=== PATIENT | female | born 1995 | race African-American/Black ===

== ENCOUNTER 2018-10-13 09:11 | Inpatient (IN) ==
[2018-10-13] MEDS ORDERED: LIDOCAINE HCL 50 ML VIAL PERI PRN (09:13)
[2018-10-13] MEDS ORDERED: NALBUPHINE HCL 10 MG/ML AMPUL IV PRN ×2 (09:13)
[2018-10-13] MEDS ORDERED: ONDANSETRON HCL/PF 2 MG/ML VIAL IV PRN (09:13)
[2018-10-13] MEDS ORDERED: RINGER'S SOLUTION,LACTATED 1,000 ML IV ONE (09:13)
[2018-10-13] MEDS ORDERED: OXYTOCIN/DEXTROSE 5%-WATER 30 UNITS/500 ML BAG IV ONE ×2 (09:13→19:59)
[2018-10-13] MEDS: RINGER'S SOLUTION,LACTATED 1,000 ML IV PRN ×2 (10:01→18:10)
[2018-10-13 10:12] LABS: Cocaine Ur Negative (NEGATIVE); Urine Barbiturate Negative (NEGATIVE); Urine Benzodiazepines Negative (NEGATIVE); Urine Opiates Negative (NEGATIVE); Urine PCP Negative (NEGATIVE); Urine THC Negative (NEGATIVE)
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
[2018-10-13] MEDS ORDERED: BENZOCAINE/MENTHOL 81 SPRAY CAN TP PRN (19:59)
[2018-10-13] MEDS ORDERED: HYDROCORTISONE 30 APPL TUBE TP PRN (19:59)
[2018-10-13] MEDS ORDERED: oxyCODONE HCL/ACETAMINOPHEN 1 TAB TABLET PO PRN ×2 (19:59)
[2018-10-13] MEDS ORDERED: GLYCERIN/WITCH HAZEL LEAF 40 APPL BOX TP PRN (19:59)
[2018-10-13] MEDS ORDERED: SENNOSIDES 8.6 MG TABLET PO PRN (19:59)
[2018-10-13] MEDS ORDERED: BISACODYL 10 MG SUPP.RECT RC PRN (19:59)
--- NOTE | 2018-10-13 20:04 | OR ---
Operative Report - Dictated Report Narrative: Date of delivery: 10/13/2018 Time of delivery: 1949 Gender: female weight: 3922 grams APGARS: 9 Procedure: Description of the procedure: The patient is a 23 yo @ 40w 6d who presented to labor and delivery for a medical induction of labor. She received pitocin and labor was augmented with AROM. She progressed to complete dilation. She delivered a viable female in the direct OA position over an intact perineum. The head was delivered followed by the shoulders and body without any difficulty. Cord clamping was delayed for 60 seconds. The cord was clamped and cut and the infant was handed off to the hospital staff pharmacist. The placenta was delivered by expression and appeared intact. Complications: none EBL: 200 mL
[2018-10-13] MEDS: DOCUSATE SODIUM 100 MG CAPSULE PO SCH (23:02)
[2018-10-14] MEDS: IBUPROFEN 800 MG TABLET PO PRN (03:04)
--- NOTE | 2018-10-14 07:46 | PN ---
Subjective - Date and Time Seen Date: 10/14/18 Time: 07:45 Subjective Narrative: Pt without complaints Objective Objective Narrative: See vital signs - Review of Systems Generalized/Overall Review: Reports: No Symptoms Reported Misc: All systems neg except as marked - Vitals Vitals: Last Vital Signs Temp 36.7 C 10/14/18 06:50 Pulse 70 10/14/18 06:50 Resp 18 10/14/18 06:50 BP 103/50 10/14/18 06:50 Pulse Ox 98 10/14/18 06:50 - Exam Constitutional: Present: Alert, Oriented x3, Cooperative, No distress Abdomen: Present: soft, nontender Extremity: Present: non-tender, no calf tenderness Skin Exam: Present: normal color, warm/dry, no cyanosis Appearance: Present: appropriate appearance Eye contact: Present: cooperative Thoughts: Present: normal thought pattern Assessment/Plan Plan Narrative: PPD 1 s/p Doing well Discharge tomorrow
[2018-10-14] MEDS: DOCUSATE SODIUM 100 MG CAPSULE PO SCH ×2 (09:10→21:17)
[2018-10-15] MEDS: IBUPROFEN 800 MG TABLET PO PRN (03:59)
--- NOTE | 2018-10-15 08:39 | PN ---
Subjective - Date and Time Seen Date: 10/15/18 Time: 08:38 Subjective Narrative: Pt without complaints Objective Objective Narrative: See vital signs - Review of Systems Generalized/Overall Review: Reports: No Symptoms Reported Misc: All systems neg except as marked - Vitals Vitals: Last Vital Signs Temp 36 C 10/14/18 11:37 Pulse 112 H 10/15/18 00:05 Resp 18 10/15/18 00:05 BP 121/65 10/15/18 00:05 Pulse Ox 97 10/15/18 00:05 - Exam Constitutional: Present: Alert, Oriented x3, Cooperative, No distress Abdomen: Present: soft, nontender, nondistended Extremity: Present: non-tender, no calf tenderness Skin Exam: Present: normal color, warm/dry, no cyanosis Appearance: Present: appropriate appearance Eye contact: Present: cooperative Thoughts: Present: normal thought pattern Assessment/Plan Plan Narrative: PPD 2 s/p Doing well Discharge today Depo prior to discharge
[2018-10-15 09:38] VITALS: BP 127/58
[2018-10-15] MEDS ORDERED: MEDROXYPROGESTERONE ACET 150 MG/ML SYRG IM ONE (10:00)
== END 2018-10-15 10:00 | disposition home or self-care (01) | DRG 806 ==
LOC: OB 09:11
PROVIDERS: ADMIT Obstetrics & Gynecology; ATTEND Obstetrics & Gynecology
CPT/HCPCS: 59025; 80307; 86850; 86900